=== PATIENT | female | born 1980 | race Two or more races ===

== ENCOUNTER 2023-12-26 17:43 | Day surgery (SDC) | payer OTHER, SELFPAY ==
[2023-12-26] VITALS (18 sets, daily range): BP systolic 91–138; BP diastolic 56–79; BMI 31.7
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
[2023-12-26 14:01] LABS: % Basophils 0.1 % (0-2); % Eosinophils 0.5 % (0-6); % Immature Granulocytes 0.2 % (0-0.5); % Neutrophils 72.2 % (42.2-75.2); Absolute Lymphocytes 1.8 10^3/uL (1.2-3.4); Absolute Monocytes 0.4 10^3/uL (0.1-0.6); Absolute Neutrophils 5.8 10^3/uL (1.4-6.5); Hematocrit 34.2 % (37.0-47.0); Hemoglobin 11.9 g/dL (12.0-16.0); Mean Corp Hgb Conc. 34.8 g/dL (33.0-37.0); Mean Corpuscular Volume 83.2 fL (81.0-99.0); Mean Platelet Volume 9.8 fL (7.4-10.4); Nucleated Red Blood Cells % 0 %; Platelet Count 244 10^3/uL (130-400); Red Blood Cell Count 4.11 10^6/uL (4.20-5.40); Red Cell Dist. Width 12.7 % (11.5-14.5); White Blood Cell Count 8.1 10^3/uL (4.8-10.8)
[2023-12-26 14:17] LABS: HCG, Serum Qualitative Screen Negative
[2023-12-26 14:29] LABS: ALT (SGPT) 21 U/L (0-35); AST (SGOT) 27 U/L (14-36); Albumin 4.3 g/dl (3.5-5.0); Alkaline Phosphatase 78 U/L (38-126); Blood Urea Nitrogen 17 mg/dl (7-17); Calcium 9.3 mg/dl (8.4-10.2); Carbon Dioxide 27 mmol/L (22-30); Chloride 104 mmol/L (98-107); Glucose 106 mg/dl (70-99); Potassium 4.1 mmol/L (3.5-5.1); Sodium 137 mmol/L (135-145); Total Bilirubin 0.5 mg/dl (0.2-1.3); Total Protein 7.1 g/dl (6.3-8.2); eGFR > 60.00
[2023-12-26 15:04] LABS: Urine Albumin Negative (Neg - Trace); Urine Bilirubin Negative (Negative); Urine Character Clear (Clear); Urine Color Yellow; Urine Glucose Negative (Negative); Urine Ketone 2+ (Negative); Urine Leukocyte Negative (Negative); Urine Nitrite Negative (Negative); Urine Occult Blood Negative (Negative); Urine Urobilinogen Negative (Neg - 1+)
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
[2023-12-26] MEDS: ZOSYN 50 IV (16:22)
--- NOTE | 2023-12-26 17:44 | W.SUR.PREOP ---
Pre-Operative Surgical Note
-
I have examined this patient prior to the performance of the scheduled procedure.
The patient's condition is unchanged from the time of the current History and
Physical and the patient is able to undergo the scheduled procedure.
--- NOTE | 2023-12-26 18:57 | W.IMMPOSTOP ---
Addendum entered and electronically signed by Arnold Velásquez MD 12/26/23 19:10:
[facility]# [id number]
Original Note:
Surgical Immed Post Op Note
-
Primary Surgeon: Didier
Assisting Surgeon: None
Pre-op Diagnosis: Acute appendicitis
Post-op Diagnosis: Acute appendicitis
Procedure Performed: Laparoscopic appendectomy
Anesthesia Type: General
Specimen / Cultures:
1. Appendix
Estimated Blood Loss: 3 cc
Complications: None
Operative Findings:
1. Acutely inflamed and dilated appendix, no evidence of perforation
2. Mesentery and pelvic wall adhesions taken with [employer] energy device, base with mobley load stapler
[2023-12-26] MEDS: DILAUDID 0.5 MG IV (19:52)
[2023-12-26] MEDS: ZOFRAN 4 MG IV (20:50)
[2023-12-26] MEDS: TYLENOL 650 MG PO (20:59)
--- NOTE | 2023-12-26 21:20 | PTCARENOTE ---
Pt. received from PACU and surgical incisions assessed with off-going PACU nurse. Pt. drowsy but arousable to verbal stimuli, states nausea and 8/10 abd pain, otherwise even and unlabored breathing on RA, and VSS. Pt. and family members educated on
hospital policies, call light within reach, bed locked and in lowest position, side rails in place, and questions addressed at time of assessment.
--- NOTE | 2023-12-26 21:22 | PTCARENOTE ---
Pt drssed w/assist from RN, assisted to chair, looked pale, pt stated she felt dizzy, BP 111/83. Pt insisting for 2hrs she wants to go home, then vomited moderate amt light green emesis. Pt still insisting to go home, Pt's came to see pt,
convinced pt to stay overnight. Pt assisted back to bed, report called, pt sent to [facility] [address]
[2023-12-26] MEDS: COMPAZINE 5 MG IV (21:58)
[2023-12-26] MEDS: TORADOL 10 MG IV (21:58)
[2023-12-26] MEDS: NORMOSOL-R 1000 IV (22:18)
[2023-12-27] MEDS: TYLENOL PO (00:01)
[2023-12-27] MEDS: TYLENOL 650 MG PO (02:30)
--- NOTE | 2023-12-27 03:14 | PTCARENOTE ---
Pt. meeting d/c requirements written our per Dr. Velásquez. Explained to pt. that she would not be able to take prescribed Oxycodone 5mg PO until business hours to scrap picker from pharmacy, pt. acknowledges this and wanted to continue with d/c
regardless. Pain managed with PO acetaminophen, nausea subsided, voiding appropriately, tolerating food and liquids. Wheeled down to main lobby, daughter driving pt. home.
--- NOTE | 2023-12-27 04:19 | DOWNTIME ---
There was a [employer] Downtime on 12/27/2023 from 0100 to 12/27/2023 at 0255. Downtime documentation of patient's care, including medication administrations, has been reconciled in the electronic record per guidelines. Refer to the
patient's paper chart under the miscellaneous tab to see printed paper medication records and downtime forms.
== END 2023-12-27 02:45 | disposition home or self-care (01) ==
LOC: OR 17:43
PROVIDERS: Physician Assistant; ATTENDING PHYSICIAN Surgery; EMERGENCY PHYSICIAN Emergency Medicine
DX: K35.80 Unspecified acute appendicitis (principal)
CPT/HCPCS: 44970; 88304; 74177; 80053; 81003; 84703; 85025; 96374; 99284; C1776; Q9967